=== PATIENT | female | born 1995 | race Hispanic/Latino ===

== ENCOUNTER 2018-01-26 22:57 | Emergency (ER) | payer BC ==
[2018-01-26] MEDS ORDERED: IPRATROPIUM/ALBUTEROL SULFATE 3 ML SOLUTION IH ONE (23:16)
[2018-01-26] MEDS ORDERED: DEXAMETHASONE SOD PHOSPHATE 10MG/ML 1ML VIAL ONE (23:28)
== END 2018-01-27 00:25 | disposition home or self-care (01) ==
LOC: EDH 22:57
DX: J20.9 Acute bronchitis, unspecified (principal); J45.909 Unspecified asthma, uncomplicated; Z88.0 Allergy status to penicillin; Z91.010 Allergy to peanuts; Z88.8 Allergy status to other drugs, medicaments and biological substances; Z98.890 Other specified postprocedural states
CPT/HCPCS: 71046; 81025; 87804 ×2; 94640; 96372; 99285; J1100

== ENCOUNTER 2018-08-29 10:47 | Emergency (ER) | payer BC ==
[2018-08-29 11:42] LABS: BASOPHILS % (AUTO) 0.7 % (0.0-5.0); EOSINOPHILS % (AUTO) 1.5 % (0.0-8.0); HEMATOCRIT 40.1 % (36-48); LYMPHOCYTES % (AUTO) 31.6 % (21.0-51.0); MEAN CORPUSCULAR HEMOGLOBIN 29.5 pg (27.0-33.0); MEAN CORPUSCULAR HGB CONC 33.2 g/dL (32.0-36.0); MONOCYTES % (AUTO) 6.1 % (3.0-13.0); NEUTROPHILS % (AUTO) 60.1 % (40.0-77.0); PLATELET COUNT (AUTO) 321 K/uL (130-400); RED CELL DISTRIBUTION WIDTH 13.2 % (11.0-15.5); WHITE BLOOD COUNT (AUTO) 8.1 K/uL (4.8-10.8)
[2018-08-29 11:49] LABS: CREATININE 0.6 mg/dL (0.5-1.5); POTASSIUM 3.9 mmol/L (3.5-5.1)
[2018-08-29 11:54] LABS: ALBUMIN 3.7 g/dL (3.5-5.0); BILIRUBIN,TOTAL 0.4 mg/dL (0.2-1.0)
[2018-08-29 11:58] LABS: APPEARANCE,URINE Clear (CLEAR); BILIRUBIN,URINE Negative (NEGATIVE); COLOR,URINE Yellow (YELLOW); GLUCOSE, URINE (UA) Negative (NEGATIVE); KETONES,URINE Negative (NEGATIVE); LEUKOCYTE ESTERASE ,URINE Moderate (NEGATIVE); NITRATE,URINE Negative (NEGATIVE); OCCULT BLOOD,URINE Negative (NEGATIVE); PH,URINE 5.5 (5.0-8.0); PROTEIN,URINE Negative (NEGATIVE)
[2018-08-29 12:00] LABS: HCG,QUAL RESULT NEGATIVE (NEGATIVE)
[2018-08-29 12:06] LABS: BACTERIA,URINE Few /HPF (None Seen); RBC,URINE 0-1 /HPF (0-1); SQUAMOUS EPITHELIAL CELL,UR Rare /HPF (0-2)
[2018-08-29] MEDS ORDERED: KETOROLAC TROMETHAMINE 15MG/ML ONE (12:38)
[2018-08-29] MEDS ORDERED: SODIUM CHLORIDE 0.9% 1000ML 1,000 ML IV ONE (12:39)
== END 2018-08-29 13:27 | disposition home or self-care (01) ==
LOC: EDH 10:47
DX: F07.81 Postconcussional syndrome (principal); G44.209 Tension-type headache, unspecified, not intractable; J45.909 Unspecified asthma, uncomplicated; Z98.890 Other specified postprocedural states; Z88.0 Allergy status to penicillin; Z91.010 Allergy to peanuts; Z88.8 Allergy status to other drugs, medicaments and biological substances
CPT/HCPCS: 36415; 70450; 80053; 81001; 81025; 85025; 96374; 99285; J1885; J7030

== ENCOUNTER 2018-09-03 20:18 | Emergency (ER) | payer BC ==
[2018-09-03] MEDS ORDERED: ONDANSETRON ODT 4 MG TAB ONE (20:42)
[2018-09-03 20:53] LABS: APPEARANCE,URINE Cloudy (CLEAR); BILIRUBIN,URINE Negative (NEGATIVE); COLOR,URINE Yellow (YELLOW); GLUCOSE, URINE (UA) Negative (NEGATIVE); KETONES,URINE Negative (NEGATIVE); LEUKOCYTE ESTERASE ,URINE Moderate (NEGATIVE); NITRATE,URINE Negative (NEGATIVE); OCCULT BLOOD,URINE Negative (NEGATIVE); PROTEIN,URINE Negative (NEGATIVE)
[2018-09-03 20:59] LABS: BACTERIA,URINE Few /HPF (None Seen); RBC,URINE 0-1 /HPF (0-1)
[2018-09-03 21:00] LABS: AMORPHOUS SEDIMENT,UR Few /LPF (None Seen); HCG,QUAL RESULT NEGATIVE (NEGATIVE); MUCUS,URINE Moderate LPF (None Seen)
[2018-09-03] MEDS ORDERED: IBUPROFEN 600 MG TABLET ONE (21:53)
== END 2018-09-03 22:13 | disposition home or self-care (01) ==
LOC: EDH 20:18
DX: S09.90XA Unspecified injury of head, initial encounter (principal); J45.909 Unspecified asthma, uncomplicated; Z90.89 Acquired absence of other organs; Z98.890 Other specified postprocedural states; Z88.0 Allergy status to penicillin; Z91.010 Allergy to peanuts; Z88.8 Allergy status to other drugs, medicaments and biological substances; V49.59XA Passenger injured in collision with other motor vehicles in traffic accident, initial encounter; Y93.89 Activity, other specified; Y92.410 Unspecified street and highway as the place of occurrence of the external cause; Y99.8 Other external cause status
CPT/HCPCS: 70450; 81001; 81025

== ENCOUNTER 2018-12-25 13:17 | Emergency (ER) | payer BC ==
[2018-12-25] MEDS ORDERED: SODIUM CHLORIDE 0.9% 1000ML 1,000 ML IV ONE (13:18)
[2018-12-25 14:27] LABS: BASOPHILS % (AUTO) 0.5 % (0.0-5.0); EOSINOPHILS % (AUTO) 1.2 % (0.0-8.0); HEMATOCRIT 39.4 % (36-48); MEAN CORPUSCULAR HEMOGLOBIN 30.1 pg (27.0-33.0); MEAN CORPUSCULAR HGB CONC 34.3 g/dL (32.0-36.0); MEAN CORPUSCULAR VOLUME 87.9 fL (79-99); MONOCYTES % (AUTO) 8.5 % (3.0-13.0); NEUTROPHILS % (AUTO) 59.8 % (40.0-77.0); PLATELET COUNT (AUTO) 283 K/uL (130-400); RED BLOOD CELL COUNT(AUTO) 4.48 MIL/uL (4.00-5.50); RED CELL DISTRIBUTION WIDTH 12.8 % (11.0-15.5); WHITE BLOOD COUNT (AUTO) 10.1 K/uL (4.8-10.8)
[2018-12-25 14:46] LABS: CREATININE 0.6 mg/dL (0.5-1.5); POTASSIUM 3.9 mmol/L (3.5-5.1)
[2018-12-25 14:49] LABS: ALBUMIN 3.6 g/dL (3.5-5.0); BILIRUBIN,TOTAL 0.3 mg/dL (0.2-1.0)
[2018-12-25 15:51] LABS: APPEARANCE,URINE Clear (CLEAR); BILIRUBIN,URINE Negative (NEGATIVE); COLOR,URINE Yellow (YELLOW); GLUCOSE, URINE (UA) Negative (NEGATIVE); KETONES,URINE Negative (NEGATIVE); LEUKOCYTE ESTERASE ,URINE Negative (NEGATIVE); NITRATE,URINE Negative (NEGATIVE); OCCULT BLOOD,URINE Negative (NEGATIVE); PH,URINE 7.5 (5.0-8.0); PROTEIN,URINE Negative (NEGATIVE)
[2018-12-25 15:53] LABS: HCG,QUAL RESULT NEGATIVE (NEGATIVE)
[2018-12-25 15:59] LABS: AMPHET/METH SCREEN,URINE NEGATIVE (NEGATIVE); BARBITURATE SCREEN, URINE NEGATIVE (NEGATIVE); BENZODIAZEPINES SCREEN,URINE NEGATIVE (NEGATIVE); CANNABINOID SCREEN,URINE NEGATIVE (NEGATIVE); COCAINE SCREEN,URINE NEGATIVE (NEGATIVE); OPIATE SCREEN,URINE NEGATIVE (NEGATIVE); PHENCYCLIDINE SCREEN,URINE NEGATIVE (NEGATIVE)
[2018-12-25] MEDS ORDERED: IOHEXOL 350 MG/ML 100ML INFUS..BTL IV ONE (17:28)
[2018-12-25] MEDS ORDERED: ACETAMINOPHEN EXTRA STRENGTH 500 MG TABLET ONE (18:53)
== END 2018-12-25 19:04 | disposition home or self-care (01) ==
LOC: EDH 13:17
DX: R55 Syncope and collapse (principal); R11.2 Nausea with vomiting, unspecified; R42 Dizziness and giddiness; H53.2 Diplopia; J45.909 Unspecified asthma, uncomplicated; Z88.0 Allergy status to penicillin; Z91.010 Allergy to peanuts; Z98.890 Other specified postprocedural states
CPT/HCPCS: 36415; 70470; 70482; 80053; 80305; 81003; 81025; 82550; 83605; 84484; 85025; 93005; 96360; 99285; J7030; Q9967

== ENCOUNTER 2019-06-11 01:06 | Emergency (ER) | payer BC, OTHER ==
[2019-06-11 01:53] LABS: BASOPHILS % (AUTO) 0.5 % (0.0-5.0); EOSINOPHILS % (AUTO) 1.5 % (0.0-8.0); HEMATOCRIT 39.4 % (36-48); LYMPHOCYTES % (AUTO) 33.9 % (21.0-51.0); MEAN CORPUSCULAR HEMOGLOBIN 29.4 pg (27.0-33.0); MEAN CORPUSCULAR HGB CONC 33.2 g/dL (32.0-36.0); MEAN CORPUSCULAR VOLUME 88.3 fL (79-99); MONOCYTES % (AUTO) 7.6 % (3.0-13.0); NEUTROPHILS % (AUTO) 55.8 % (40.0-77.0); PLATELET COUNT (AUTO) 309 K/uL (130-400); RED BLOOD CELL COUNT(AUTO) 4.46 MIL/uL (4.00-5.50); RED CELL DISTRIBUTION WIDTH 12.3 % (11.0-15.5); WHITE BLOOD COUNT (AUTO) 12.2 K/uL (4.8-10.8)
[2019-06-11 02:02] LABS: APPEARANCE,URINE Clear (CLEAR); BILIRUBIN,URINE Negative (NEGATIVE); COLOR,URINE Yellow (YELLOW); GLUCOSE, URINE (UA) Negative (NEGATIVE); KETONES,URINE Negative (NEGATIVE); LEUKOCYTE ESTERASE ,URINE Trace (NEGATIVE); NITRATE,URINE Negative (NEGATIVE); OCCULT BLOOD,URINE Negative (NEGATIVE); PH,URINE 6.5 (5.0-8.0); PROTEIN,URINE Negative (NEGATIVE)
[2019-06-11 02:05] LABS: CREATININE 0.7 mg/dL (0.5-1.5); POTASSIUM 3.8 mmol/L (3.5-5.1)
[2019-06-11 02:09] LABS: ALBUMIN 3.8 g/dL (3.5-5.0); BILIRUBIN,TOTAL 0.2 mg/dL (0.2-1.0); TOTAL PROTEIN, SERUM 7.2 g/dL (6.0-8.3)
[2019-06-11 02:16] LABS: BACTERIA,URINE Few /HPF (None Seen); RBC,URINE None Seen /HPF (0-1); SQUAMOUS EPITHELIAL CELL,UR Few /HPF (0-2); WBC,URINE 0-1 /HPF (0-1)
[2019-06-11 02:26] LABS: AMPHET/METH SCREEN,URINE NEGATIVE (NEGATIVE); BARBITURATE SCREEN, URINE POSITIVE (NEGATIVE); BENZODIAZEPINES SCREEN,URINE NEGATIVE (NEGATIVE); CANNABINOID SCREEN,URINE NEGATIVE (NEGATIVE); COCAINE SCREEN,URINE NEGATIVE (NEGATIVE); OPIATE SCREEN,URINE NEGATIVE (NEGATIVE); PHENCYCLIDINE SCREEN,URINE NEGATIVE (NEGATIVE)
== END 2019-06-11 03:07 | disposition home or self-care (01) ==
LOC: EDH 01:06
DX: F41.9 Anxiety disorder, unspecified (principal); R55 Syncope and collapse; R51 Headache; J45.909 Unspecified asthma, uncomplicated; Z88.0 Allergy status to penicillin; Z91.010 Allergy to peanuts; Z98.890 Other specified postprocedural states
CPT/HCPCS: 36415; 70450; 80053; 80305; 81001; 81025; 84484; 85025; 93005

== ENCOUNTER 2019-08-16 18:33 | Emergency (ER) | payer OTHER, SELFPAY | END 2019-08-16 21:30 | disposition home or self-care (01) | LOC: EDH 18:33 | DX: B34.9 Viral infection, unspecified (principal); N39.0 Urinary tract infection, site not specified; Z20.828 Contact with and (suspected) exposure to other viral communicable diseases; J45.909 Unspecified asthma, uncomplicated; Z90.49 Acquired absence of other specified parts of digestive tract; Z88.0 Allergy status to penicillin; Z91.010 Allergy to peanuts; Z91.038 Other insect allergy status | CPT/HCPCS: 36415; 71045; 80053; 81001; 81025; 85025; 87088; 87804 ×2; 87880; 99284; U0003 ==

== ENCOUNTER 2019-11-23 08:58 | Emergency (ER) | payer OTHER, SELFPAY ==
[2019-11-23 09:40] LABS: BILIRUBIN,URINE Negative (NEGATIVE); COLOR,URINE Yellow (YELLOW); GLUCOSE, URINE (UA) Negative (NEGATIVE); KETONES,URINE Negative (NEGATIVE); LEUKOCYTE ESTERASE ,URINE Moderate (NEGATIVE); NITRATE,URINE Negative (NEGATIVE); OCCULT BLOOD,URINE Negative (NEGATIVE); PROTEIN,URINE Negative (NEGATIVE); UROBILINOGEN,URINE 0.2 mg/dL (0.2-1.0)
[2019-11-23 09:47] LABS: APPEARANCE,URINE SLIGHTLY CLOUDY (CLEAR)
[2019-11-23 09:48] LABS: HCG,QUAL RESULT NEGATIVE (NEGATIVE)
[2019-11-23 09:50] LABS: AMPHET/METH SCREEN,URINE NEGATIVE (NEGATIVE); BARBITURATE SCREEN, URINE NEGATIVE (NEGATIVE); BENZODIAZEPINES SCREEN,URINE NEGATIVE (NEGATIVE); CANNABINOID SCREEN,URINE NEGATIVE (NEGATIVE); COCAINE SCREEN,URINE NEGATIVE (NEGATIVE); OPIATE SCREEN,URINE NEGATIVE (NEGATIVE); PHENCYCLIDINE SCREEN,URINE NEGATIVE (NEGATIVE)
[2019-11-23 09:55] LABS: RBC,URINE 0-1 /HPF (0-1)
[2019-11-23 09:56] LABS: BACTERIA,URINE Few /HPF (None Seen)
== END 2019-11-23 11:08 | disposition home or self-care (01) ==
LOC: EDH 08:58
DX: N83.291 Other ovarian cyst, right side (principal); J45.909 Unspecified asthma, uncomplicated; Z90.49 Acquired absence of other specified parts of digestive tract; Z72.0 Tobacco use; Z88.9 Allergy status to unspecified drugs, medicaments and biological substances; Z91.010 Allergy to peanuts; Z88.0 Allergy status to penicillin
CPT/HCPCS: 80305; 81001; 81025; 87077; 87088; 87186

== ENCOUNTER 2020-01-29 10:07 | Emergency (ER) | payer OTHER ==
[2020-01-29 10:50] LABS: APPEARANCE,URINE Cloudy (CLEAR); BILIRUBIN,URINE Negative (NEGATIVE); COLOR,URINE Yellow (YELLOW); GLUCOSE, URINE (UA) Negative (NEGATIVE); KETONES,URINE Negative (NEGATIVE); LEUKOCYTE ESTERASE ,URINE Small (NEGATIVE); NITRATE,URINE Positive (NEGATIVE); OCCULT BLOOD,URINE Negative (NEGATIVE); PROTEIN,URINE Negative (NEGATIVE); UROBILINOGEN,URINE 0.2 mg/dL (0.2-1.0)
[2020-01-29 10:55] LABS: RAPID GROUP A STREP NEGATIVE (NEGATIVE)
[2020-01-29] MEDS ORDERED: ONDANSETRON ODT 4 MG TAB ONE (11:03)
[2020-01-29] MEDS ORDERED: ACETAMINOPHEN EXTRA STRENGTH 500 MG TABLET ONE (11:03)
[2020-01-29 11:04] LABS: HCG,QUAL RESULT NEGATIVE (NEGATIVE)
[2020-01-29 11:07] LABS: BACTERIA,URINE Rare /HPF (None Seen); RBC,URINE 0-1 /HPF (0-1); SQUAMOUS EPITHELIAL CELL,UR Rare /HPF (0-2); WBC,URINE 0-1 /HPF (0-1)
== END 2020-01-29 11:17 | disposition home or self-care (01) ==
LOC: EDH 10:07
DX: U07.1 COVID-19 (principal); J45.909 Unspecified asthma, uncomplicated; Z88.0 Allergy status to penicillin; Z91.010 Allergy to peanuts; Z88.8 Allergy status to other drugs, medicaments and biological substances; Z72.0 Tobacco use
CPT/HCPCS: 81001; 81025; 87077; 87088; 87186; 87426; 87804; 87880

== ENCOUNTER 2020-07-24 20:36 | Emergency (ER) | payer OTHER ==
[~2020-07-24] VITALS: Ht 157.5 cm; Wt 108.9 kg
[2020-07-24 21:00] VITALS: BP 130/74
[2020-07-24] MEDS ORDERED: IBUPROFEN 600 MG TABLET PO ONE (21:00)
[2020-07-24 22:24] VITALS: BP 124/78
== END 2020-07-24 22:28 | disposition home or self-care (01) ==
LOC: EDH 20:36
DX: S63.601A Unspecified sprain of right thumb, initial encounter (principal); S60.221A Contusion of right hand, initial encounter; Z88.0 Allergy status to penicillin; Z88.8 Allergy status to other drugs, medicaments and biological substances; Z91.010 Allergy to peanuts; W23.0XXA Caught, crushed, jammed, or pinched between moving objects, initial encounter; Y93.89 Activity, other specified; Y92.89 Other specified places as the place of occurrence of the external cause; Y99.8 Other external cause status
CPT/HCPCS: 73130

== ENCOUNTER 2020-11-20 22:45 | Emergency (ER) | payer SELFPAY ==
[~2020-11-20] VITALS: Ht 157.5 cm; Wt 108.9 kg
[2020-11-21 00:21] LABS: APPEARANCE,URINE Clear (CLEAR); BILIRUBIN,URINE Negative (NEGATIVE); COLOR,URINE Yellow (YELLOW); GLUCOSE, URINE (UA) Negative (NEGATIVE); KETONES,URINE Negative (NEGATIVE); LEUKOCYTE ESTERASE ,URINE Negative (NEGATIVE); NITRATE,URINE Negative (NEGATIVE); OCCULT BLOOD,URINE Negative (NEGATIVE); PROTEIN,URINE Negative (NEGATIVE)
[2020-11-21 00:24] LABS: HCG,QUAL RESULT NEGATIVE (NEGATIVE)
[2020-11-21 00:25] LABS: CREATININE 0.6 mg/dL (0.5-1.5); POTASSIUM 3.7 mmol/L (3.5-5.1)
[2020-11-21 00:28] LABS: HEMATOCRIT 43.1 % (36-48); MEAN CORPUSCULAR HEMOGLOBIN 30.6 pg (27.0-33.0); MEAN CORPUSCULAR HGB CONC 33.4 g/dL (32.0-36.0); MEAN CORPUSCULAR VOLUME 91.7 fL (79-99); RED BLOOD CELL COUNT(AUTO) 4.7 MIL/uL (4.00-5.50); RED CELL DISTRIBUTION WIDTH 12.3 % (11.0-15.5); WHITE BLOOD COUNT (AUTO) 9.5 K/uL (4.8-10.8)
[2020-11-21 00:29] LABS: BILIRUBIN,TOTAL 0.2 mg/dL (0.2-1.0); TOTAL PROTEIN, SERUM 7.4 g/dL (6.0-8.3)
[2020-11-21] MEDS ORDERED: KETOROLAC 30MG VIAL (30MG/ML) IV ONE (01:00)
[2020-11-21] MEDS ORDERED: 0.9%NACL 1000ML 1,000 ML IV ONE (01:00)
[2020-11-21] MEDS ORDERED: IOHEXOL 350 MG/ML 100ML INFUS..BTL IV ONE (01:36)
[2020-11-21] MEDS ORDERED: ORPHENADRINE CITRATE 30 MG/ML ML IV ONE (04:00)
[2020-11-21] MEDS ORDERED: FAMOTIDINE 20MG VIAL IV ONE (04:00)
[2020-11-21] MEDS ORDERED: DICY20TA2 PO (04:01)
[2020-11-21] MEDS ORDERED: ONDA4TAB10 PO (04:01)
[2020-11-21] MEDS ORDERED: CYCL-309 PO (04:01)
[2020-11-21] MEDS ORDERED: MELO7.5T12 PO (04:01)
[2020-11-21 04:27] VITALS: BP 115/78
== END 2020-11-21 04:38 | disposition home or self-care (01) ==
LOC: EDH 22:45
DX: R10.31 Right lower quadrant pain (principal); E86.9 Volume depletion, unspecified; M54.9 Dorsalgia, unspecified; J45.909 Unspecified asthma, uncomplicated; E66.9 Obesity, unspecified; Z79.1 Long term (current) use of non-steroidal anti-inflammatories (NSAID); Z79.899 Other long term (current) drug therapy; Z88.0 Allergy status to penicillin
CPT/HCPCS: 36415; 74177; 80053; 81003; 81025; 83690; 85027; 96361; 96374; 96375; 99285; J1885; J2360; J3490; J7030; Q9967

== ENCOUNTER 2021-03-20 09:50 | Emergency (ER) | payer SELFPAY ==
[~2021-03-20] VITALS: Ht 157.5 cm; Wt 111.1 kg
[~2021-03-20 09:50] MED LIST: CYCL-309 PO; DICY20TA2 PO; MELO7.5T12 PO; ONDA4TAB10 PO
[2021-03-20] MEDS ORDERED: AZITHROMYCIN 250 MG TABLET PO ONE (11:00)
[2021-03-20] MEDS ORDERED: IBUP-2070 PO (11:00)
[2021-03-20] MEDS ORDERED: AZIT1PAC7 PO (11:00)
[2021-03-20] MEDS ORDERED: ACETAMINOPHEN 500 MG TABLET PO ONE (11:00)
[2021-03-20] MEDS ORDERED: GUAI5SYR PO (11:00)
[2021-03-20] MEDS ORDERED: GUAIFENESIN-DM 200/20 MG 10 ML PO ONE (11:00)
[2021-03-20 11:51] VITALS: BP 126/68
== END 2021-03-20 11:50 | disposition home or self-care (01) ==
LOC: EDH 09:50
DX: J02.9 Acute pharyngitis, unspecified (principal); J45.909 Unspecified asthma, uncomplicated; Z20.822 Contact with and (suspected) exposure to COVID-19; Z88.0 Allergy status to penicillin; Z79.1 Long term (current) use of non-steroidal anti-inflammatories (NSAID)
CPT/HCPCS: 87635; 87804 ×2; 87880; 99283; C9803

== ENCOUNTER 2021-03-22 19:16 | Emergency (ER) | payer SELFPAY ==
[~2021-03-22] VITALS: Ht 157.5 cm; Wt 111.1 kg
[~2021-03-22 19:16] MED LIST changes: +AZIT1PAC7 PO; +GUAI5SYR PO; +IBUP-2070 PO
[2021-03-22] MEDS: ACETAMINOPHEN WITH CODEINE 1 TAB TAB PO ONE (20:03)
[2021-03-22] MEDS: CYCLOBENZAPRINE HCL 10 MG TABLET PO ONE (20:03)
[2021-03-22] MEDS ORDERED: CYCL10TA16 PO (20:18)
[2021-03-22] MEDS ORDERED: D-ME1POW16 PO (20:18)
[2021-03-22] MEDS ORDERED: IBUP-1552 PO (20:18)
[2021-03-22 20:33] VITALS: BP 129/87
== END 2021-03-22 20:35 | disposition home or self-care (01) ==
LOC: EDH 19:16
DX: J06.9 Acute upper respiratory infection, unspecified (principal); J45.909 Unspecified asthma, uncomplicated; E66.9 Obesity, unspecified; Z79.1 Long term (current) use of non-steroidal anti-inflammatories (NSAID); Z88.0 Allergy status to penicillin; Z68.41 Body mass index [BMI] 40.0-44.9, adult

== ENCOUNTER 2022-02-14 21:49 | Emergency (ER) | payer BC, OTHER ==
[~2022-02-14] VITALS: Ht 157.5 cm; Wt 119.7 kg
[~2022-02-14 21:49] MED LIST changes: +CYCL10TA16 PO; +D-ME1POW16 PO; +DEXA4 PO; +HYDR-3422 PO; +IBUP-1552 PO; +IBUP-2076 PO; +MACR100 PO
[2022-02-14 23:44] LABS: BILIRUBIN,URINE MODERATE mg/dL (NEGATIVE); COLOR,URINE RED (YELLOW); GLUCOSE, URINE (UA) 100 mg/dL (NEGATIVE); KETONES,URINE 15 mg/dL (NEGATIVE); LEUKOCYTE ESTERASE ,URINE MODERATE Leu/uL (NEGATIVE); NITRATE,URINE POSITIVE (NEGATIVE); OCCULT BLOOD,URINE LARGE (NEGATIVE); PROTEIN,URINE >=300 mg/dL (NEGATIVE)
[2022-02-14 23:48] LABS: APPEARANCE,URINE CLOUDY (CLEAR)
[2022-02-14 23:51] LABS: EOSINOPHILS % (AUTO) 4.5 % (0.0-8.0); HEMATOCRIT 40.8 % (36-48); LYMPHOCYTES % (AUTO) 41.1 % (21.0-51.0); MEAN CORPUSCULAR HEMOGLOBIN 29.4 pg (27.0-33.0); MEAN CORPUSCULAR HGB CONC 33.8 g/dL (32.0-36.0); MEAN CORPUSCULAR VOLUME 86.8 fL (79-99); MONOCYTES % (AUTO) 7.1 % (3.0-13.0); NEUTROPHILS % (AUTO) 45.1 % (40.0-77.0); PLATELET COUNT (AUTO) 332 K/uL (130-400); RED CELL DISTRIBUTION WIDTH 12.5 % (11.0-15.5); WHITE BLOOD COUNT (AUTO) 11.6 K/uL (4.8-10.8)
[2022-02-14 23:55] LABS: RBC,URINE TNTC /HPF (0-1)
[2022-02-14 23:57] LABS: BACTERIA,URINE Many /HPF (None Seen); WBC,URINE 26-50 /HPF (0-1)
[2022-02-15 00:02] LABS: CREATININE 0.6 mg/dL (0.5-1.5)
[2022-02-15 00:06] LABS: ALBUMIN 3.8 g/dL (3.5-5.0); TOTAL PROTEIN, SERUM 6.9 g/dL (6.0-8.3)
[2022-02-15] MEDS ORDERED: NAPR-1180 PO (02:43)
[2022-02-15] MEDS ORDERED: DICY20TA2 PO (02:43)
[2022-02-15 02:58] VITALS: BP 135/74
== END 2022-02-15 03:23 | disposition home or self-care (01) ==
LOC: EDH 21:49
DX: N92.1 Excessive and frequent menstruation with irregular cycle (principal); J45.909 Unspecified asthma, uncomplicated; Z90.89 Acquired absence of other organs; Z79.899 Other long term (current) drug therapy; Z88.0 Allergy status to penicillin; Z88.8 Allergy status to other drugs, medicaments and biological substances; Z91.010 Allergy to peanuts
CPT/HCPCS: 36415; 80053; 81001; 81025; 83690; 85025; 87077; 87088; 87186

== ENCOUNTER 2025-01-14 10:10 | Emergency (ER) | payer BC ==
[~2025-01-14] VITALS: Ht 157.5 cm; Wt 120.2 kg
[2025-01-14 11:02] VITALS: BP 116/52; PULSE 85; RESP 16; TEMP 98.3; O2SAT 96
--- NOTE | 2025-01-14 12:03 | HMCIMG ---
EXAM: CR left ankle, 2 View. CLINICAL HISTORY: trauma COMPARISON: None provided. FINDINGS: BONES: No acute fracture or aggressive appearing osseous lesion. JOINTS: The joint spaces appear within normal limits. No dislocation. No radiographic evidence of a joint effusion. SOFT TISSUES: The soft tissues are unremarkable. IMPRESSION: No acute osseous abnormality. /[place]
--- NOTE | 2025-01-14 12:31 | ERN ---
ED Note History of Present Illness Stated Complaint: MULTIPLE COMPLAINTS Chief Complaint: Multiple Complaints Time Seen by MD: 10:38 Time Seen by Midlevel: 10:40 Dictation: 29 year old female with multiple complaints. Patient states she has had umbili ngozi drainage since May, left ankle pain since , and a head bump since June. Allergies: Coded Allergies: Penicillins (Unverified Allergy, Unknown, 08/29/18) carbinoxamine (Unverified Allergy, Unknown, 08/29/18) peanut (Unverified Allergy, Unknown, 08/29/18) pseudoephedrine (Unverified Allergy, Unknown, 08/29/18) Home Meds Active Scripts Dicyclomine HCl (Bentyl) 20 Mg Tab, 20 MG PO TID for 7 Days, #21 TAB Prov:MONTSERRAT JULIO MD 02/15/22 Naproxen (Naprosyn) 500 Mg Tablet, 500 MG PO BIDPC for 10 Days, #20 TAB 0 Refills Prov:MONTSERRAT JULIO MD 02/15/22 Dexamethasone (Decadron) 4 Mg Tab, 4 MG PO DAILY for 3 Days, #3 TAB 0 Refills Prov:DEBBIE ORNELAS MD 09/14/21 Cyclobenzaprine HCl (Cyclobenzaprine HCl) 10 Mg Tablet, 10 MG PO TID PRN for spasm, #15 TAB 0 Refills Prov:DEBBIE ORNELAS MD 09/14/21 Ibuprofen (Ibuprofen) 400 Mg Tablet, 400 MG PO QID, #60 TAB 0 Refills Prov:DEBBIE ORNELAS MD 09/14/21 Hydroxyzine HCl (Hydroxyzine HCl) 50 Mg Tablet, 50 MG PO TID PRN for ANXIETY/AGITATION, #15 TAB Prov:KENNETH SKINNER 08/19/21 Nitrofurantoin/Nitrofuran Mac (Macrobid) 100 Mg Cap, 1 CAP PO BID for 7 Days, #14 CAP 0 Refills Prov:KENNETH SKINNER 08/19/21 Ibuprofen (Ibu) 400 Mg Tablet, 800 MG PO TIDMEALS, #45 TAB Prov:CHIOMA DEWITT 03/22/21 Cyclobenzaprine HCl (Flexeril) 10 Mg Tab, 10 MG PO BID, #30 TAB Prov:CHIOMA DEWITT 03/22/21 D-Methorphan/PE/Acetaminophen (Theraflu Ms Severe Cold Pckt) 1 Each Powd.pack, 1 EACH PO QIDP, #20 PACK Prov:CHIOMA DEWITT 03/22/21 Azithromycin (Azithromycin) 1 Gm Packet, 1 TAB PO AD for 5 Days, #1 PKT Prov:JOSE GUNN MD 03/20/21 Guaifenesin/Dextromethorphan (Guaifenesin Dm Syrup) 5 Ml Syrup, 10 ML PO QID for cough, #120 ML Prov:JOSE GUNN MD 03/20/21 Ibuprofen (Ibuprofen) 600 Mg Tablet, 600 MG PO Q6H PRN for PAIN, #30 TAB Prov:JOSE GUNN MD 03/20/21 Ondansetron (Ondansetron Odt) 4 Mg Tab.rapdis, 4 MG PO Q6HPRN, #20 TAB 0 Refills Prov:NANCY LAMBERT MD 11/21/20 Cyclobenzaprine HCl (Cyclobenzaprine HCl) 10 Mg Tablet, 10 MG PO TIDP, #20 TAB 0 Refills Prov:NANCY LAMBERT MD 11/21/20 Meloxicam (Mobic) 7.5 Mg Tablet, 7.5 MG PO DAILY, #10 TAB 0 Refills Prov:NANCY LAMBERT MD 11/21/20 Dicyclomine HCl (Bentyl) 20 Mg Tab, 20 MG PO Q6HPRN, #20 TAB 0 Refills Prov:NANCY LAMBERT MD 11/21/20 Past Medical History Past Medical History: Anxiety, Asthma, Depression Additional Past Medical Hx: PTSD Surgical History: Tonsillectomy, Cholecystectomy Surgical History Other: EAR TUBES Social History: Negative, Lives with family History: Not Applicable LMP: Mar 31, 2024 Review of System Dictation Constitutional: Negative for fever,chills, and weight loss Eyes: Negative for injury, pain,redness, and discharge ENT: Negative for injury,pain or swelling Cardiovascular: Negative for chest pain, palpitations, and edema Respiratory: Negative for shortness of breath, cough, and wheezing, Abdomen/GI: Negative for abdominal pain, nausea, vomiting, diarrhea, and consti pation Back: Negative for injury and pain : Negative for injury, bleeding and discharge MS/Extremity: left Ankle pain Skin: Negative for rash, and discoloration, complaining of drainage to the umbilical area since May Neuro: Negative for headache, weakness, numbness, tingling, and seizure Psych: Negative for suicide ideation, homicidal ideation, and hallucinations Review of Systems: was completed Initial Vital Sign VS Vital Signs Date Time Temp Pulse Resp B/P (MAP) Pulse Ox O2 Delivery O2 Flow Rate FiO2 01/14/25 10:11 98.4 88 16 127/79 99 Room Air 0 01/14/25 11:02 21 Physical Exam Dictation General: awake, alert, NAD Head/Face: Normocephalic, atraumatic, small nonmobile mass on the scalp area consistent with a likely with a lipoma Eyes: PERRL, EOMI, vision at baseline ENT: oral cavity clear, TMs clear, no signs of infection Neck: Trachea midline, supple, no nuchal rigidity Cardiovascular: RRR, normal S1/S2, No MRGs, no JVD Respiratory: CTAB, no respiratory distress, No rales or wheezes Abdomen: Soft, non-tender, non-distended, normal bowel sounds, no guarding or rebound. Skin: Warm, dry, normal turgor, no rash, mild redness, moisture noted inside, no active drainage MS/Extremity: Pulses equal, no cyanosis, neurovascular intact, FROM Neuro: COAx4, GCS 15, strength 5/5, CN 2-12 intact, normal cerebellar exam, normal gait, Psych: Normal behavior, mood, and affect normal Results (Laboratory/Radiology) X-RAY Comment: [address] [address] IMAGING REPORT Signed PATIENT: RAJESH CARBONE MR#: [id number] : 1995 SEX: F AGE: 29 LOCATION: [facility] ORDER 03 STATUS: REG ER REPORT#: [id number] SERVICE 110 REASON: trauma ORDERING PHYSICIAN: SAMY GLEZ CNP PROCEDURE: [id number] - ANKLE 2VWS LT EXAM: CR left ankle, 2 View. CLINICAL HISTORY: trauma COMPARISON: None provided. FINDINGS: BONES: No acute fracture or aggressive appearing osseous lesion. JOINTS: The joint spaces appear within normal limits. No dislocation. No radiographic evidence of a joint effusion. SOFT TISSUES: The soft tissues are unremarkable. IMPRESSION: No acute osseous abnormality. /[place] DICTATED BY: SHAYAN CHOUDHARY Jr., MD DATE: 01/14/25 1302 ELECTRONICALLY SIGNED BY: SHAYAN CHOUDHARY Jr., MD DATE: 01/14/25 1302 ED Course ED Course Orders Procedure Category Date Status Time Ankle 2vws Lt RAD 01/14/25 Resulted 11:01 Aerobic Culture RENAY 01/14/25 In Process 11:01 Vital Signs Date Time Temp Pulse Resp B/P (MAP) Pulse Ox O2 Delivery O2 Flow Rate FiO2 01/14/25 11:02 98.2 85 16 116/52 96 Room Air* 0 21 01/14/25 10:11 98.4 88 16 127/79 99 Room Air 0 Medical Decision Making MDM MDM: 29 year old female with multiple complaints. Patient states she has had u mbilical drainage since May, left ankle pain since , and a head bump since June. On physical exam there is a nonmobile mass, mild pain on palpation to the occipital scalp area problem more than likely this is a lipoma. However told patient that she needs to follow up with her PCP and or with Dermatology for further evaluation. Collected a wound culture on the umbilical area, we will discharge patient with the antibiotics broad-spectrum and change according culture is out. There is no warmth, tenderness, foul smell, no fever, no history of MRSA in no piercings noted. This seems to be more superficial with no systemic symptoms. We will treat like mild cellulitis. X-ray of the left ankle shows no acute finding. All this was discussed with the patient. Educated on red flag symptoms of when to return back to the ER. Patient verbalized understanding, answered all questions. Differential diagnosis: Cellulitis, lipoma, ankle sprain Rationale: Tests considered and ordered secondary to shared decision making include: Previous outside records reviewed: Old ER visits. Risk of complication and/or morbidity or mortality of patient management: None Medications-Per medication reconciliation Need for hospitalization: Patient does not meet criteria for hospitalization. Need for emergency major/minor surgery: No There are no social concerns with this patient. Prescription drug management Prescriptions will include symptomatic care Patient's prior external medical records from other ER visits were reviewed by me as indicated. Prior testing and results from previous visits were reviewed. Prior tests were taken into account with medical decision making and resource utilization, independent historian/historians were used to obtain complete medical history. I independently interpreted the test that were performed, results were reviewed by me and considered findings on radiology if ordered. Medical management and examination interpretation discussions were had by me with other qualified healthcare professionals as indicated for the patient's care. DX & DISP Disposition: Discharge Departure Impression: Primary Impression: Lipoma Additional Impressions: Ankle sprain, Cellulitis Condition: Stable Scripts Clindamycin HCl (Clindamycin HCl) 300 Mg Capsule 1 CAP PO TID for 10 Days, #30 CAP 0 Refills Prov: SAMY GLEZ CNP 01/14/25 Additional Instructions: Follow up With your PCP, and or with Dermatology for your scalp lipoma. Return to the hospital if any worsening symptoms. Referrals: SELF,REFERRAL (PCP) Time of Disposition: 12:28 I have reviewed the case, and I agree with, Diagnosis and Plan SAMY GLEZ CNP Jan 14, 2025 12:31
== END 2025-01-14 13:06 | disposition home or self-care (01) ==
LOC: EDH 10:10
DX: S93.402A Sprain of unspecified ligament of left ankle, initial encounter (principal); L03.90 Cellulitis, unspecified; D17.9 Benign lipomatous neoplasm, unspecified; F41.9 Anxiety disorder, unspecified; J45.909 Unspecified asthma, uncomplicated; Z79.1 Long term (current) use of non-steroidal anti-inflammatories (NSAID); Z79.52 Long term (current) use of systemic steroids; Z88.0 Allergy status to penicillin; Z90.49 Acquired absence of other specified parts of digestive tract; Z90.89 Acquired absence of other organs; Z91.010 Allergy to peanuts; X58.XXXA Exposure to other specified factors, initial encounter; Y93.89 Activity, other specified; Y92.89 Other specified places as the place of occurrence of the external cause; Y99.8 Other external cause status
CPT/HCPCS: 73600; 87070; 99283